=== PATIENT | female | born 1975 | race Two or more races ===

== ENCOUNTER 2024-07-06 20:07 | Emergency (ER) | payer OTHER ==
[~2024-07-06] VITALS: Ht 157.5 cm; Wt 51.8 kg
[2024-07-06 20:57] LABS: BASOPHILS % (AUTO) 0.8 % (0.0-2.0); HEMATOCRIT 42.9 % (36-46); HEMOGLOBIN 14.1 g/dL (12.0-16.0); LYMPHOCYTES # (AUTO) 2.4 K/uL (1.0-4.8); LYMPHOCYTES % (AUTO) 21.3 % (22.0-44.0); MEAN CORPUSCULAR HEMOGLOBIN 29.8 pg (26.0-34.0); MEAN CORPUSCULAR HGB CONC 32.9 G/dL (31.0-37.0); MEAN CORPUSCULAR VOLUME 91 fL (80-100); MONOCYTES # (AUTO) 0.5 K/uL (0.1-1.0); MONOCYTES % (AUTO) 4.7 % (2.0-9.0); NEUTROPHILS # (AUTO) 7.8 K/uL (1.8-7.7); NEUTROPHILS % (AUTO) 70.2 % (40.0-70.0); PLATELET COUNT (AUTO) 275 K/uL (150-450); RED BLOOD CELL COUNT(AUTO) 4.74 MIL/uL (4.00-5.20); WHITE BLOOD COUNT (AUTO) 11.2 K/uL (4.5-11.0)
[2024-07-06 21:09] LABS: ANION GAP 11 mmol/L (8-16); CALCIUM, TOTAL 9.1 mg/dL (8.8-10.5); CARBON DIOXIDE 28 mmol/L (22-29); CHLORIDE 101 mmol/L (98-107); CREATININE 0.89 mg/dL (0.60-1.30); GLOMERULAR FILTR. RATE CALC > 60 mL/min (>60); GLUCOSE,RANDOM 187 mg/dL (70-110); POTASSIUM 3.3 mmol/L (3.5-5.1); SODIUM SERUM 140 mmol/L (136-145); UREA NITROGEN, BLOOD 15 mg/dL (7-18)
[2024-07-06 21:15] LABS: ALANINE AMINOTRANSFERASE 47 U/L (12-78); ALBUMIN 3.8 g/dL (3.4-5.0); ALKALINE PHOSPHATASE 116 U/L (46-116); ASPARTATE AMINOTRANSFERASE 59 U/L (15-37); BILIRUBIN,TOTAL 0.5 mg/dL (0.1-1.0); TOTAL PROTEIN, SERUM 7.5 g/dL (6.4-8.2)
[2024-07-06 21:17] LABS: TROPONIN I-HIGH SENSITIVITY 20 ng/L (<51)
[2024-07-07] MEDS: SODIUM CHLORIDE 0.9% 1,000 ML IV ONE (00:24)
[2024-07-07] MEDS: FAMOTIDINE 20 MG/2 ML VIAL IVP ONE (00:25)
[2024-07-07] MEDS: MORPHINE SULFATE 2 MG/ML SYRINGE IVP ONE (00:25)
[2024-07-07] MEDS ORDERED: FAMO20 PO (00:33)
[2024-07-07 01:11] VITALS: BP 115/58; PULSE 72; RESP 16; TEMP 98.2; O2SAT 100
== END 2024-07-07 01:12 | disposition home or self-care (01) ==
LOC: EMS 20:07
DX: K80.70 Calculus of gallbladder and bile duct without cholecystitis without obstruction (principal)
CPT/HCPCS: 99285; 76705; 71045; 80048; 80076; 84484; 85025; 36415; 93005; 96374; 96361; 96375; J3490; J2270; J7030

== ENCOUNTER 2025-10-03 06:12 | Emergency (ER) | payer OTHER ==
[~2025-10-03] VITALS: Ht 157.5 cm; Wt 50.0 kg
[~2025-10-03 06:12] MED LIST: FAMO20 PO
[2025-10-03 06:14] VITALS: BP 130/92; PULSE 71; RESP 18; TEMP 98.2; O2SAT 99
[2025-10-03] MEDS: FAMOTIDINE 20 MG/2 ML VIAL IVP ONE (06:34)
[2025-10-03] MEDS: MAG HYDROX/ALUMINUM HYD/SIMETH ES 30 ML SUSPENSION UDCUP PO ONE (06:34)
[2025-10-03 06:39] LABS: PLATELET COUNT (AUTO) 253 K/uL (150-450); RED BLOOD CELL COUNT(AUTO) 4.66 MIL/uL (4.00-5.20); RED CELL DISTRIBUTION WIDTH 14.1 % (11.5-14.5); WHITE BLOOD COUNT (AUTO) 5.1 K/uL (4.5-11.0)
[2025-10-03 06:51] LABS: CALCIUM, TOTAL 9.1 mg/dL (8.8-10.5); CREATININE 0.87 mg/dL (0.60-1.30); GLOMERULAR FILTR. RATE CALC > 60 mL/min (>60); GLUCOSE,RANDOM 114 mg/dL (70-110); SODIUM SERUM 139 mmol/L (136-145); UREA NITROGEN, BLOOD 12 mg/dL (7-18)
[2025-10-03 06:53] LABS: ASPARTATE AMINOTRANSFERASE 19.0 U/L (15-37); TOTAL PROTEIN, SERUM 7.4 g/dL (6.4-8.2)
[2025-10-03 06:59] LABS: TROPONIN I-HIGH SENSITIVITY 29 ng/L (<51)
[2025-10-03] MEDS ORDERED: OMEP-148 PO (07:59)
== END 2025-10-03 08:18 | disposition home or self-care (01) ==
LOC: EMS 06:12
DX: K21.9 Gastro-esophageal reflux disease without esophagitis (principal); R10.13 Epigastric pain; Z90.710 Acquired absence of both cervix and uterus; Z90.49 Acquired absence of other specified parts of digestive tract; Z98.890 Other specified postprocedural states; Z79.899 Other long term (current) drug therapy
CPT/HCPCS: 99285; 96374; 71045; 80048; 80076; 83690; 84484; 85025; 36415; 93005; J3490